=== PATIENT | female | born 1990 | race Caucasian/White ===

== ENCOUNTER 2020-02-04 11:05 | Outpatient (REF) | payer OTHER, SELFPAY ==
--- NOTE | 2020-02-04 11:11 | FL_ITS ---
EXAMINATION: XR BARIUM SWALLOW CLINICAL INFORMATION: Globus sensation. COMPARISON: None. TECHNIQUE: The patient was given thin and thick consistency barium, effervescent granules and a barium pill to swallow. The swallowing mechanism and esophagus were evaluated with the patient positioned variously. Reflux maneuvers were performed. FLUOROSCOPY TIME: 2.9 minutes IMAGES:38 TOTAL DOSE: 30.695 mGy TOTAL DAP: 9.099 Gycm2 FINDINGS: The swallowing mechanism was unremarkable. The esophagus showed a normal mucosal fold pattern, without mucosal thickening, ulceration, mass or stricture. The patient passed a barium pill with transient holdup at the gastroesophageal junction; however, this passed fairly readily. There was normal esophageal motility. There is no hiatus hernia. Gastroesophageal reflux is not seen despite reflux maneuvers. IMPRESSION: Unremarkable examination.
== END 2020-02-04 11:06 | disposition home or self-care (01) ==
LOC: HO.XRAY 11:05
PROVIDERS: PCP Nurse Practitioner Family; Visit Provider Physician Assistant
DX: R13.10 Dysphagia, unspecified (principal); R09.89 Other specified symptoms and signs involving the circulatory and respiratory systems
CPT/HCPCS: 74220

== ENCOUNTER 2020-03-27 08:10 | Outpatient (REF) | payer OTHER, SELFPAY ==
[2020-03-27 09:17] LABS: COVID-19 Test Negative (Negative)
== END 2020-03-27 08:11 | disposition home or self-care (01) ==
LOC: HO.EMPCOV 08:10
PROVIDERS: Visit Provider Internal Medicine
DX: Z20.828 Contact with and (suspected) exposure to other viral communicable diseases (principal)
CPT/HCPCS: 87635; C9803

== ENCOUNTER 2020-04-26 10:08 | Outpatient (REF) | payer OTHER, SELFPAY ==
[2020-04-26 10:30] LABS: COVID-19 Test Negative (Negative); IDNOW Serial# 55D5AD1C
== END 2020-04-26 10:09 | disposition home or self-care (01) ==
LOC: HO.EMPCOV 10:08
PROVIDERS: PCP Nurse Practitioner Family; Visit Provider Internal Medicine
DX: Z20.828 Contact with and (suspected) exposure to other viral communicable diseases (principal)
CPT/HCPCS: 87635; C9803

== ENCOUNTER 2020-06-06 07:39 | Outpatient (REF) | payer OTHER, SELFPAY ==
[2020-06-06 07:56] LABS: COVID-19 Test Negative (Negative)
== END 2020-06-06 07:40 | disposition home or self-care (01) ==
LOC: HO.EMPCOV 07:39
PROVIDERS: Visit Provider Internal Medicine
DX: Z20.822 Contact with and (suspected) exposure to COVID-19 (principal)
CPT/HCPCS: 36415; 87635; C9803

== ENCOUNTER 2020-06-08 07:34 | Outpatient (REF) | payer OTHER, SELFPAY ==
[2020-06-08 07:52] LABS: COVID-19 Test Negative (Negative); IDNOW Serial# 55D5AD1C
== END 2020-06-08 07:35 | disposition home or self-care (01) ==
LOC: HO.EMPCOV 07:34
PROVIDERS: Visit Provider Internal Medicine
DX: Z20.822 Contact with and (suspected) exposure to COVID-19 (principal)
CPT/HCPCS: 36415; 87635; C9803

== ENCOUNTER 2020-06-13 07:57 | Outpatient (REF) | payer OTHER, SELFPAY ==
[2020-06-13 08:21] LABS: COVID-19 Test Negative (Negative); IDNOW Serial# 55D5AD1C
== END 2020-06-13 07:58 | disposition home or self-care (01) ==
LOC: HO.EMPCOV 07:57
PROVIDERS: Visit Provider Internal Medicine
DX: Z20.822 Contact with and (suspected) exposure to COVID-19 (principal)
CPT/HCPCS: 36415; 87635; C9803

== ENCOUNTER 2021-01-06 22:33 | Emergency (ER) | payer OTHER, SELFPAY ==
[2021-01-06 23:09] VITALS: BP 136/92; PULSE 89; RESP 20; TEMP 35.9; O2SAT 100; BMI 23.8
--- NOTE | 2021-01-07 00:31 | ED_ITS ---
HPI - Dental/Oral General Chief complaint: Dental/Oral Stated complaint: Dental Pain Time Seen by Provider: 01/07/21 00:31 Source: patient Limitations: no limitations History of Present Illness HPI Narrative: 30-year-old female here today for dental pain. Patient was seen by her dentist and was given amoxicillin and was sent to oral surgeon for root canal. Patient reports that she does not have appointment with them told at 30. Patient is taking ibuprofen 600 mg without any effect. She does report that when she swishes her mouth with cold water it helps. Patient denies any gum swelling or bleeding. Patient denies any sinus pain or ear pain. No trouble swallowing. No sore throat, no fever MD Complaint: tooth pain Location: Tooth # (2, 30) Onset (ago): day(s) Duration: constant Severity: moderate Relieving factors: nothing Treatment prior to arrival: oral analgesic (Ibuprofen 600 mg) Related Data Previous Rx's Medication Instructions Recorded amoxicillin 875 mg-potassium 1 tab PO BID 7 Days #14 tab 01/07/21 clavulanate 125 mg tablet (Augmentin) oxycodone 5 mg tablet 5 mg PO Q4-6H PRN #5 tab 01/07/21 Allergies Allergy/AdvReac Type Severity Reaction Status Date / Time No Known Allergies Allergy Unverified 01/13/20 19:27 [No Known Allergies*] Review of Systems Review of Systems: Constitutional : No Weight loss, No Fever, No Chills, No Night Sweats, No Fatigue, No Malaise ENT/Mouth : No Hearing loss, No Ear Pain, No Nasal Congestion, No Sinus Pain, No Hoarseness, No sore throat, No Rhinorrhea, No Swallowing Difficulty, Tooth pain Eyes: No Eye Pain, No Swelling, No Redness, No Foreign Body, No Discharge, No Vision Changes Cardiovascular : No Chest Pain, No SOB, No Dyspnea on Exertion, No Orthopnea, No Edema, No Palpitations Respiratory : No Cough, No Sputum, No Wheezing, No Smoke Exposure, No Dyspnea Gastrointestinal : No Nausea, No Vomiting, No Diarrhea, No Constipation, No abdominal Pain, No Hematochezia, No Melena Genitourinary : no irregular bleeding, No Dysuria, No Urinary Frequency, No Hematuria, No Urinary Incontinence, No Urgency, No Flank Pain, No Urinary Flow Changes, No Hesitancy Musculoskeletal : No joint pain, No Myalgias, No Joint Swelling Skin : No Skin Lesions, No rash Neuro : No Weakness, No Numbness, No Paresthesias, No Loss of Consciousness, No Dizziness, No Headache Yes all other systems are reviewed and are negative PMFSH Social History Social History Advance Directives: No Physical Exam Vital Signs: Vital Signs: Last Vital Signs Temp 96.6 F L 01/06/21 23:09 Pulse 89 01/06/21 23:09 Resp 20 01/06/21 23:09 BP 136/92 H 01/06/21 23:09 Pulse Ox 100 01/06/21 23:09 Body Mass Index 23.8 Const: General: healthy appearing, no acute distress and well developed Nutritional Appearance: well nourished Orientation/consciousness: patient oriented x3 HENMT: Head: Yes normal to inspection, Yes normocephalic and Yes atraumatic Ears: hearing grossly normal bilaterally, external ears normal, TM's normal bilaterally and mastoids normal General nose exam: Normal external nose present Face and sinus: Yes normal facial exam Mouth: Normal oral and palatal mucosa present Teeth and gingiva: dentition normal Throat: Yes posterior oropharynx normal Neck: Neck: Yes normal visual inspection, Yes full ROM and Yes trachea midline Thyroid: Thyroid normal Resp: Auscultation: clear to auscultation bilaterally Cardio: Rate: regular rate Rhythm: regular rhythm GI: Inspection: Yes normal to inspection and No distended Palpation (GI): No hepatosplenomegaly present Auscultation: normal bowel sounds Skin: General skin exam: elasticity normal, turgor normal and dry skin Neuro: General: patient oriented x3 Course Course Course Narrative: 30-year-old female with dental pain. Number 2 and number 31. On exam there is no gum infection, no maxillary sinus pain, patient is waiting for root canal and does not have appointment still January 23. She was placed on amoxicillin and has been taking for last 3 days however it is not helping. Will start her on Augmentin twice a day for 7 days. Will give her dose of oxycodone and send him home on that. Patient was instructed to return if her symptoms will get worse or if she will experience any additional concerning symptoms Discharge Plan Discharge Clinical Impression: Toothache Patient Disposition: Home, Self-Care Instructions: Dental Abscess (ED), Toothache (ED) Additional Instructions: You were seen here today for your tooth pain. You were given different antibiotic and pain medication. Please follow-up with your dentist on Friday. Please call your oral surgeon to see if they can do the procedure sooner. You may return to our emergency department if her symptoms will get worse or if you experience any additional concerning symptoms. Prescriptions: New amoxicillin-pot clavulanate [Augmentin] 875-125 mg tablet 1 tab PO BID 7 Days Qty: 14 RF: 0 oxycodone 5 mg tablet 5 mg PO Q4-6H PRN (Reason: pain) Qty: 5 RF: 0 Referrals: Dania Bond, SATURATION EQUIPMENT OPERATOR [Primary Care Provider] - 2 days Stand Alone Forms: Work/School Release Interventions: ED Discharge Assessment Last Done: 01/07/21 01:01 Discharge Date/Time: 01/07/21 01:03
[2021-01-07] MEDS: Amoxicillin/Potassium Clav 875 MG TABLET PO (00:50)
[2021-01-07] MEDS: oxyCODONE HCl Immed Release 5 MG TABLET PO (00:50)
== END 2021-01-07 01:03 | disposition home or self-care (01) ==
PROVIDERS: Emergency Provider Student in an Organized Health Care Education/Training Program; PCP Nurse Practitioner Family
DX: K08.89 Other specified disorders of teeth and supporting structures (principal)
CPT/HCPCS: 99283

== ENCOUNTER 2021-05-16 07:42 | Outpatient (REF) | payer OTHER, SELFPAY ==
[2021-05-16 09:14] LABS: Thyroid Stimulating Hormone 1.59 uIU/mL (0.32-4.0)
== END 2021-05-16 07:43 | disposition home or self-care (01) ==
LOC: HO.LAB 07:42
PROVIDERS: PCP Nurse Practitioner Family; Visit Provider Nurse Practitioner Family
DX: K59.00 Constipation, unspecified (principal)
CPT/HCPCS: 36415; 84443

== ENCOUNTER 2021-06-01 23:32 | Emergency (ER) | payer OTHER, SELFPAY ==
[2021-06-01 23:40] VITALS: BP 100/64; PULSE 68; RESP 16; O2SAT 96; BMI 23.9
--- NOTE | 2021-06-02 00:08 | ED_ITS ---
HPI - Psych General Chief Complaint: Psychiatric Symptoms Stated Complaint: self harm Time Seen by Provider: 06/02/21 00:05 History of Present Illness HPI Narrative: patient is a 30-year-old female her sister recently . Patient under lot of stress. Was drinking alcohol. Has thoughts about wanting to hurt herself. Patient elected to cut her left wrist. History of previous cutting behavior before. Positive suicidal ideation. Boyfriend noted patient has cuts to her wrist. Contacted a friend subsequently patient was sent in for further evaluation. No fever no chills no coughing or congestion or upper respiratory symptoms no diaphoresis. Patient home. complaint: suicidal ideation Related Data Previous Rx's Medication Instructions Recorded amoxicillin 875 mg-potassium 1 tab PO BID 7 Days #14 tab 01/07/21 clavulanate 125 mg tablet (Augmentin) oxycodone 5 mg tablet 5 mg PO Q4-6H PRN #5 tab 01/07/21 Allergies Allergy/AdvReac Type Severity Reaction Status Date / Time No Known Allergies Allergy Unverified 01/13/20 19:27 [No Known Allergies*] Review of Systems Verdana 4l Review of Systems: Verdana 4d No cough no congestion or Verdana 4d upper respiratory symptoms no diaphoresis all system reviewed otherwise negative Verdana 4d Yes all other systems are reviewed and are negative [facility] Past Medical History Attestation statement: The following information was validated with the patient. 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 Oriented X3. No acute distress. Eyes: Pupils equal, round and reactive to light. ENT: Pharynx normal. Neck: Normal inspection. Neck supple. No lymph nodes noted. No crepitus CVS: Normal heart rate and rhythm. Pulses normal. Normal S1 and S2 Respiratory: No respiratory distress. Breath sounds normal. No Wheezing. No rales Abdomen: Soft and nontender. No rigidity. No distention. good BS x4 Skin: Skin warm and dry. Normal skin color. Normal skin turgor. multiple superficial cut ross were noted in the left wrist Extremities: No lower extremity edema. Neurovascular intact to all extremities. No Lacerations. No Rash Neuro: Oriented X 3. No motor deficit. No sensory deficit. Moving all extermities. No slurred speech MDM - Psych MDM Narrative Medical decision making narrative: will get crisis to evaluate patient. Discharge Plan Discharge Clinical Impression: Alcohol intoxication, Suicidal ideation Prescriptions: No Action amoxicillin-pot clavulanate [Augmentin] 875-125 mg tablet 1 tab PO BID 7 Days Qty: 14 0RF oxycodone 5 mg tablet 5 mg PO Q4-6H PRN (Reason: pain) Qty: 5 0RF Rx Instructions: Patient may request fewer tablets than prescribed
[2021-06-02 00:28] VITALS: BMI 23.9
[2021-06-02] MEDS: Acetaminophen 325 MG TABLET 650 MG PO ×2 (01:19→06:19)
[2021-06-02 01:35] LABS: UPreg QC Valid YES; Urine Pregnancy NEGATIVE (NEGATIVE)
[2021-06-02 01:39] LABS: Ethanol 195 mg/dL
--- NOTE | 2021-06-02 01:46 | PC.NURSE ---
I assumed care of Hawa upon her arrival to bed 6. She arrived via EMS, tearful, from home after her boyfriend called 911 in response to her cutting her left wrist intentionally because she is depressed, she states. 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 She hyas no complaints - no chest pain, no Sob, no nausea or vomiting, no LOUIS or lightheadedness. There is no bleeding to the left wrist where there are multiple small, superficial self inflicted markings from cutting. The pt is calm, cooperative, polite, makes eye contact with staff appropriately and has a full range of emotions while in the E.D. Labs were obtained from Hawa and she has been informed that in order to meet with Daniele she needs to have a BAL below a certain cutoff. Although she expressed dismay over this since it will likely mean a longer ER visit, she was cooperative. She has been moved from bed 6 to pod.
[2021-06-02 01:51] LABS: Amphetamine Screen Urine Not Detected (Not Detect); Barbiturates, Urine Not Detected (Not Detect); Benzodiazepines Screen Urine Not Detected (Not Detect); Cannabinoid Screen Urine Not Detected (Not Detect); Cocaine Screen Urine Not Detected (Not Detect); Fentanyl, urine Not Detected (Not Detect); Opiate Screen Urine Not Detected (Not Detect); Phencyclidine Screen Urine Not Detected (Not Detect)
[2021-06-02 02:08] LABS: COVID-19 Test Negative (Negative); IDNOW Serial# 9DD0AD1C
[2021-06-02] MEDS: LORazepam 1 MG TABLET 2 MG PO (06:35)
--- NOTE | 2021-06-02 07:01 | PC.NURSE ---
Patient slept through the night, patient was upset and tearful in the morning, care team notified, Ativan 2 mg PO administered with positive effect, no distress reported, will continue to monitor.
--- NOTE | 2021-06-02 07:40 | PC.NURSE ---
pt seen by carlos (care team) pt aware of plan of care.
[2021-06-02 08:01] VITALS: BP 115/70; PULSE 98; RESP 17; TEMP 37.1; O2SAT 99
--- NOTE | 2021-06-02 08:35 | PC.NURSE ---
superficial lac to pt's l inner lower forearm cleansed with n/s and pat dry.
--- NOTE | 2021-06-02 09:15 | MHC.CARE ---
Pt is a 30 y/o Georgian speaking female who is previously unknown to the CARE Team.? Yesterday, EMS and police were called after pt cut her wrist.? Pt lost her older sister to HERMAN on May 16 and has been grieving the loss since that time.? Pt was in the bathroom at home and had been consuming alcoholic beverage in a quantity that she normally does not ingest.? Her boyfriend checked on her and found that she had made a horizontal cut to her left wrist.? He saw the blood, grew immediately concerned and contacted her best friend, not knowing what to do.? Her best friend in turn called the police who responded with EMS and the pt was transported here via ambulance. Pt has been medically cleared and is being assessed by the CARE Team to determine appropriate treatment recommendations. Pt has no known hx of inpt hospitalizations, and is not on any medication for mental illness. No known dx of mental illness.? No known hx of substance use or suicide attempts.? Pt is alert and oriented x4 and is assessed in her room in the Behavioral Health Pod of the ED.? She is dressed in hospital attire, appears neat and well-groomed and her stated age.? She is engaged in the conversation, makes intermittent eye contact and appears embarrassed.? It is worth noting that pt is an employee of [employer].? Pt is help seeking, not knowing precisely what type of help she needs but did suggest she could benefit from a therapist or from the EAP.? Her speech is within normal limits.? She reports fair sleep and appetite.? Her mood is sad; her affect is congruent with her mood.? She is at times tearful at the mention of the loss of her sister.? She does not appear delusional or experiencing symptoms of psychosis.? She denies AVH, HI, , or self-harm urges.? She attributes her self-injury yesterday to excessive alcohol consumption.? She does report a remote hx of cutting with the last such incident occurring when she was 19 or 20, approximately 10 years ago.? Pt appears insightful regarding the incident that occurred yesterday and had suggested that speaking with family and loved ones regarding her grief may not be as effective as speaking with a therapist.? She denies any hx of SI stating that she had ?Never wanted to or kill myself.?? Pt?s judgement, memory, concentration, and impulse control appear good at this time. Pt admits to being off her baseline yesterday when she cut her wrist.? She attributes this to her excessive alcohol consumption.? 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 She engages with family and friends as well as her boyfriend who she cohabitates with. ?She has no psychiatric medication.? At baseline, pt goes to work regularly and goes about the activities of daily living with no difficulty.? Pt appears at this time to be at her baseline. Collateral report was taken from pt?s boyfriend.? Pt?s boyfriend Will discussed the details of the incident as outlined above.? He expressed that he felt pt could be safe at home and was welcome to return though he did say she needed some help of some sort. Plan is for pt to be discharged home.? CARE Team will contact the [facility] EAP program and ask that they contact pt. for an appointment.? A safety plan will be put in place and is attached to this note. ?This disposition is discussed with and agreed upon by ED provider Bob Wesley, Director of Behavioral Health Bob Ybarra, and pt?s nurse LALY Garsia.? ? Safety Plan: If you find yourself in crisis utilize these organizations for crisis support/evaluation ? For crisis support/ evaluation ? [facility] Crisis- [phone], [facility] Crisis- [phone], [address] [place] [address] Crisis- [phone], [place], come to [facility] ED ? Safety Plan Hawa will utilize coping skills when feeling anxious, depressed, or stressed and will challenge irrational thinking If Hawa is feeling unsafe/taking actions toward harming herself or others she will call crisis hotlines, or come to the ED If there are any questions regarding this safety plan, Hawa or any concerned parties can call the CARE Team at [phone], opt 1. Hawa is encouraged to share this plan with friends and therapist (Once secured).? A follow up phone call will be made to you by the CARE Team early to mid-week to check in with you and offer additional supports if needed. Steps for keeping you safe: ? List People and social settings that can provide distraction: ? ? Name:? Phone: ? Name:? Phone: ? Name:? Phone: ? How can you make your environment safe? ? 1.? 2.? 3.? CARE Team will contact the [facility] Employee Assistance Program to facilitate an appointment.
[2021-06-02] MEDS: LORazepam 1 MG TABLET PO (10:43)
--- NOTE | 2021-06-04 16:43 | MHC.CARE ---
CARE Team called Hawa, , to follow up and left a voicemail for pt to call back when available.
--- NOTE | 2021-06-06 17:35 | MHC.CARE ---
CARE Team speaks with pt as a follow up to her recent ED visit.? Pt reports that she is doing ?Ok? and is ?Trying?.? She recently dropped her boyfriend off at detox for drinking and has been experiencing stress surrounding that.? She reports not having slept last night due to being unable to get to sleep.? She reports being prescribed a medication for sleep but last night it made her anxious and she was unable to sleep.? She reports that she has an appointment with Mary Ann Michael from [facility] and appears optimistic about the meeting.? Pt was encouraged to reach out should she need anything else.
== END 2021-06-02 11:00 | disposition home or self-care (01) ==
PROVIDERS: Emergency Provider Emergency Medicine Emergency Medical Services
DX: F10.920 Alcohol use, unspecified with intoxication, uncomplicated (principal); Y90.6 Blood alcohol level of 120-199 mg/100 ml; R45.851 Suicidal ideations; Z20.822 Contact with and (suspected) exposure to COVID-19; Z72.89 Other problems related to lifestyle; Z63.4 Disappearance and death of family member
CPT/HCPCS: 36415; 80307; 81025; 82077; 87635; 99285

== ENCOUNTER 2021-06-05 23:52 | Emergency (ER) | payer OTHER, SELFPAY ==
--- NOTE | 2021-06-06 | ECG_ITS ---
Test Reason : anxiety Blood Pressure : / mmHG Vent. Rate : 077 BPM Atrial Rate : 091 BPM P-R Int : 136 ms QRS Dur : 096 ms QT Int : 396 ms P-R-T Axes : 045 083 042 degrees QTc Int : 448 ms Sinus rhythm with marked sinus arrhythmia Otherwise normal ECG No previous ECGs available Referred By: Generic ED Physician Electronically Signed By:Regulo Parkinson
[2021-06-06 00:02] VITALS: BP 150/100; PULSE 90; RESP 18; TEMP 36.4; O2SAT 100; BMI 23.9
[2021-06-06 01:39] LABS: MANUAL DIFF FLAG NO
[2021-06-06 01:42] LABS: Basophils Percent Auto 0.4 % (0-2); Eosinophils Absolute Auto 0.5 X10*3/uL (0.0-0.4); Eosinophils Percent Auto 6.9 % (0-4); Hematocrit 35.3 % (37.0-47.0); Hemoglobin 12.2 g/dl (12.0-16.0); Imm Gran Abs Auto 0.02 X10*3/uL (0.00-0.03); Imm Gran Pct Auto 0.3 % (0.0-0.4); Lymphocytes Absolute Auto 2.7 X10*3/uL (1.2-4.9); Lymphocytes Percent Auto 35.4 % (20-40); Mean Corpuscular HGB Conc 34.6 g/dl (31.0-35.0); Mean Corpuscular Hemoglobin 33.2 pg (27.0-33.0); Mean Corpuscular Volume 95.9 fL (80.0-98.0); Mean Platelet Volume 9.2 fL (9.4-12.3); Monocytes Absolute Auto 0.5 X10*3/uL (0.1-1.2); Monocytes Percent Auto 6.8 % (2-11); Neutrophils Absolute Auto 3.8 x10*3/uL (2.0-8.3); Neutrophils Percent Auto 50.2 % (45-73); Platelet Count 246 X10*3/uL (160-400); Red Blood Count 3.68 X10*6/uL (4.20-5.50); White Blood Count 7.5 X10*3/uL (4.8-10.8)
--- NOTE | 2021-06-06 01:48 | PC.NURSE ---
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 CIWA scored performed, score 10 related to nausea/vomiting and anxiety. Pt also reports self harm cutting herself seen here at [facility] on Friday, pt denies self harm tendencies today. CARE team Tonia spoken with and stated they have been trying to follow up with her today over the phone without any answer. Pt calm and coopertaive in waiting room at this time.
[2021-06-06 01:58] LABS: Ethanol < 10 mg/dL
[2021-06-06 01:59] LABS: Anion Gap 14 (12-20); Blood Urea Nitrogen 12 mg/dL (9-16); Calcium 10.4 mg/dL (8.4-10.2); Carbon Dioxide 22 mmol/L (22-29); Chloride 107 mmol/L (96-108); Creatinine Clr Calc Pharmacy 101.8; Estimated Glomerular Filt Rate > 60; Glucose Random 96 mg/dL (60-115); Potassium 3.6 mmol/L (3.3-5.1); Sodium 139 mmol/L (135-145)
[2021-06-06 03:33] VITALS: BP 141/89; PULSE 89; RESP 16; TEMP 36.8; O2SAT 99
--- NOTE | 2021-06-06 03:35 | PC.NURSE ---
pt to room with c/o my heart is racing after my sister approx 1 month ago. pt arrives alert, respirations easy, n/l. skin w/d. pt chg into gown and awaiting MD tyrone kelly.
--- NOTE | 2021-06-06 05:10 | ED_ITS ---
HPI - General Adult General Chief complaint: General Medical Stated complaint: anxiety, chest pain Time Seen by Provider: 06/06/21 05:10 Source: patient Mode of arrival: ambulatory History of Present Illness HPI narrative: 30-year-old female without significant past medical history presents with feeling extreme anxiety associated with small sharp chest pains and provides the additional history that she recently lost her sister on May 16 of this year and began drinking afterwards but has stopped drinking as of Friday. She states that yesterday she dropped her boyfriend off at rehab and thought that she would be okay and then developed the symptoms that prompted her to seek out medical attention. She states she had some concerns that she may be withdrawing from alcohol. And at this time she endorses that she is feeling much better and denies any associated symptoms such as headache, paresthesias, AVH. Related Data Previous Rx's Medication Instructions Recorded amoxicillin 875 mg-potassium 1 tab PO BID 7 Days #14 tab 01/07/21 clavulanate 125 mg tablet (Augmentin) oxycodone 5 mg tablet 5 mg PO Q4-6H PRN #5 tab 01/07/21 Allergies Allergy/AdvReac Type Severity Reaction Status Date / Time No Known Allergies Allergy Verified 06/06/21 00:01 [No Known Allergies*] Review of Systems Review of Systems: Pertinent positives and negatives as stated in HPI 10 point review of systems is otherwise negative. PMFSH Past Medical History Source: nursing notes reviewed Social History Social History Alcohol intake: current Patient Tobacco Use Status: Never used Tobacco Advance Directives: No Advance Directives Information Provided: Yes Patient : No Physical Exam Vital Signs: Vital Signs: Last Vital Signs Temp 98.2 F 06/06/21 03:33 Pulse 89 06/06/21 03:33 Resp 16 06/06/21 03:33 BP 141/89 H 06/06/21 03:33 Pulse Ox 99 06/06/21 03:33 BMI result Body Mass Index 23.9 VITAL SIGNS: Reviewed. GENERAL: Well developed, well nourished, in no acute distress. HEAD: Normocephalic/atraumatic EYES: PERRLA, EOMI OROPHARYNX: no oral lesions noted, posterior pharynx clear LUNGS: Normal breath sounds. No adventitious sounds or accessory muscle use. SpO2<99> CARDIOVASCULAR: Regular rate and rhythm without noted murmurs ABDOMEN: Soft, non-tender, non-distended with bowel sounds. SKIN: Inspection of the skin reveals no rashes NEUROLOGIC: Alert and oriented x 4. Strength and sensation to light touch were grossly intact x 4, no tremor PSYCH: Normal affect, Course Course Course Narrative: 30-year-old female with history and clinical presentation consistent with grieving process and associated anxiety with current situation. No evidence to suggest acute alcohol withdrawal, however patient was counseled on continuing to monitor herself for such symptoms and reassured that as she is feeling better this is felt to be less likely. She was reassured and states that she has follow-up with a therapist and feels that she is well supported. She was encouraged to return to the emergency room should she ever feel the need. Medical Decision Making Lab Data Result diagrams: 06/06/21 01:34 06/06/21 01:34 Labs: Lab Results 06/06/21 06/06/21 06/06/21 Range/Units 01:34 01:34 01:34 WBC 7.5 (4.8-10.8) X10*3/uL RBC 3.68 L (4.20-5.50) X10*6/uL Hgb 12.2 (12.0-16.0) g/dl Hct 35.3 L (37.0-47.0) % MCV 95.9 (80.0-98.0) fL MCH 33.2 H (27.0-33.0) pg MCHC 34.6 (31.0-35.0) g/dl RDW 12.0 (11.0-16.0) % Plt Count 246 (160-400) X10*3/uL MPV 9.2 L (9.4-12.3) fL Immature Gran % (Auto) 0.3 (0.0-0.4) % Neut % (Auto) 50.2 (45-73) % Lymph % (Auto) 35.4 (20-40) % [place] % (Auto) 6.8 (2-11) % Eos % (Auto) 6.9 H (0-4) % Baso % (Auto) 0.4 (0-2) % Lymph # (Auto) 2.7 (1.2-4.9) X10*3/uL [place] # (Auto) 0.5 (0.1-1.2) X10*3/uL Eos # (Auto) 0.5 H (0.0-0.4) X10*3/uL Baso # (Auto) 0.0 (0.0-0.2) X10*3/uL Abs Immat Gran (auto) 0.02 (0.00-0.03) X10*3/uL Absolute Neuts (auto) 3.8 (2.0-8.3) x10*3/uL Absolute Nucleated RBC 0.000 (0.0-0.012) X10*3/uL Nucleated RBC % (auto) 0.0 (0.0-0.2) /100WBC Sodium 139 (135-145) mmol/L Potassium 3.6 (3.3-5.1) mmol/L Chloride 107 (96-108) mmol/L Carbon Dioxide 22 (22-29) mmol/L Anion Gap 14 (12-20) BUN 12 (9-16) mg/dL Creatinine 0.68 (0.5-1.4) mg/dL Estim Creat Clear Calc 101.8 Estimated GFR > 60 Random Glucose 96 (60-115) mg/dL Calcium 10.4 H (8.4-10.2) mg/dL Ethyl Alcohol < 10 mg/dL Discharge Plan Discharge Clinical Impression: Anxiety, Grieving, Alcohol use Patient Disposition: Home, Self-Care Instructions: Anxiety (ED), Grief and Loss (ED) Additional Instructions: 1. Resume all home medications as prescribed. 2. Continue follow-up as scheduled with Mary Ann Return to the ER for any worsening symptoms or concerns. Prescriptions: No Action amoxicillin-pot clavulanate [Augmentin] 875-125 mg tablet 1 tab PO BID 7 Days Qty: 14 0RF oxycodone 5 mg tablet 5 mg PO Q4-6H PRN (Reason: pain) Qty: 5 0RF Rx Instructions: Patient may request fewer tablets than prescribed
== END 2021-06-06 06:15 | disposition home or self-care (01) ==
PROVIDERS: Emergency Provider Student in an Organized Health Care Education/Training Program
DX: F41.9 Anxiety disorder, unspecified (principal); F43.21 Adjustment disorder with depressed mood; F10.99 Alcohol use, unspecified with unspecified alcohol-induced disorder; Y90.0 Blood alcohol level of less than 20 mg/100 ml; Z72.89 Other problems related to lifestyle; Z63.4 Disappearance and death of family member
CPT/HCPCS: 36415; 80048; 82077; 85025; 93005; 99283; 99284

== ENCOUNTER → 2022-06-12 15:03 | Outpatient (BNVA) | payer OTHER, SELFPAY | PROVIDERS: PCP Nurse Practitioner Family; Visit Provider Nurse Practitioner Family | DX: Z13.89 Encounter for screening for other disorder (principal) ==

== ENCOUNTER → 2022-10-11 08:00 | Outpatient (REF) | payer OTHER, SELFPAY ==
--- NOTE | 2022-10-11 08:06 | CA_ITS ---
Acquisition Time: 2022-10-11 08:14:56 Total Exercise Time: 00:10:01 Test Indications: CP Medications: SEE H Protocol: SUKHJINDER Max HR: 179 BPM 93% of Pred: 191 BPM Max BP: 146/070 mmHG Max Work Load: 11.6 METS Exercise stress test exericse 10 min 1 sec of Sukhjinder protocol achieving 93% MPHR, without anginal symptoms, without arrhythmias, with normotensive response to exercise, without EKG changes. Test reviewed with Dr. Saavedra. Referred By: Harris Yoder Overread By: STAR LOPEZ
== END ==
LOC: HO.CARD 08:00
PROVIDERS: PCP Internal Medicine; Visit Provider Internal Medicine
DX: R07.9 Chest pain, unspecified (principal)
CPT/HCPCS: 93017

== ENCOUNTER 2022-12-23 19:58 | Emergency (ER) | payer OTHER, SELFPAY ==
--- NOTE | 2022-12-23 | ECG_ITS ---
Test Reason : ABNORMAL EKG Blood Pressure : / mmHG Vent. Rate : 080 BPM Atrial Rate : 080 BPM P-R Int : 138 ms QRS Dur : 100 ms QT Int : 394 ms P-R-T Axes : 079 090 056 degrees QTc Int : 454 ms Normal sinus rhythm with sinus arrhythmia Rightward axis Incomplete right bundle branch block Borderline ECG When compared with ECG of 06-JUN-2021 00:05, No significant change was found Referred By: Generic ED Physician Electronically Signed By:MOY COOPER
--- NOTE | 2022-12-23 20:10 | ED_ITS ---
HPI - General Adult General Chief complaint: Chest Pain Stated complaint: abnormal EKG, UC referral Time Seen by Provider: 12/23/22 21:03 Source: patient Mode of arrival: ambulatory Limitations: no limitations History of Present Illness HPI narrative: Patient comes in the emergency room complaining of 2 months of chest pain. Patient states that she went to urgent care 1st, an EKG was done which showed a right bundle branch block in patient was sent to the emergency room for further evaluation. Patient states that she is known to have anxiety. Patient states when she takes Ativan the chest pain resolves. At this time, patient is asymptomatic. Patient denies any shortness of breath, and she is extremely anxious. Patient denies any near-syncope or syncope episodes. No nausea vomiting diarrhea, no URI symptoms. Patient states that she takes Wellbutrin and recently she had Zoloft added 18 days ago, patient states that her anxiety symptoms have gotten worse since she started any medication Related Data Home Medications Medication Instructions Recorded Confirmed bupropion HCl 300 mg 24 hr tablet, 300 mg PO QAM 06/12/22 06/12/22 extended release (Wellbutrin XL) buspirone 5 mg tablet 30 mg PO BID 06/12/22 06/12/22 methylphenidate HCl 18 mg 18 mg PO DAILY 06/12/22 06/12/22 tablet,extended release 24 hr (Concerta) Previous Rx's Medication Instructions Recorded zolpidem 5 mg tablet 10 mg PO BEDTIME PRN sleep 7 days 06/12/22 #14 tabs Allergies Allergy/AdvReac Type Severity Reaction Status Date / Time No Known Allergies Allergy Verified 06/12/22 15:22 [No Known Allergies*] Review of Systems Review of Systems: Constitutional : No Weight loss, No Fever, No Chills, No Night Sweats, No Fatigue, No Malaise ENT/Mouth : No Hearing loss, No Ear Pain, No Nasal Congestion, No Sinus Pain, No Hoarseness, No sore throat, No Rhinorrhea, No Swallowing Difficulty Eyes: No Eye Pain, No Swelling, No Redness, No Foreign Body, No Discharge, No Vision Changes Cardiovascular : Complaining of chest pain related to anxiety for the last 2 months. No SOB, No Dyspnea on Exertion, No Orthopnea, No Edema, No Palpitations Respiratory : No Cough, No Sputum, No Wheezing, No Smoke Exposure, No Dyspnea Gastrointestinal : No Nausea, No Vomiting, No Diarrhea, No Constipation, No abdominal Pain, No Hematochezia, No Melena Genitourinary : no irregular bleeding, No Dysuria, No Urinary Frequency, No Hematuria, No Urinary Incontinence, No Urgency, No Flank Pain, No Urinary Flow Changes, No Hesitancy Musculoskeletal : No joint pain, No Myalgias, No Joint Swelling Skin : No Skin Lesions, No rash Neuro : No Weakness, No Numbness, No Paresthesias, No Loss of Consciousness, No Dizziness, No Headache Psych : No Anxiety/Panic, No Depression, No SI/HI/AH/VH, No Social Issues, Heme/Lymph: No Bruising, No Bleeding,No Lymphadenopathy Endocrine : No Polyuria, No Polydipsia, No Temperature Intolerance [facility] Past Medical History Medical History Anxiety Family History Family History Father Pancreatic abnormality Hypertension Mother No problems noted. Social History Social History Alcohol intake: current Patient Tobacco Use Status: Never used Tobacco Advance Directives: No Advance Directives Information Provided: Yes Patient : No Physical Exam ED Vital Signs: Vital Signs - 24 hr 12/23/22 20:31 12/23/22 21:04 Temperature 97.6 F Pulse Rate 84 79 Respiratory Rate 18 18 Blood Pressure 145/100 H 136/91 H Pulse Oximetry 100 100 Oxygen Delivery Method Room Air Room Air BMI result Body Mass Index 23.9 Const Other: Appearance: Alert. Oriented X3. No acute distress. Eyes: Pupils equal, round and reactive to light. ENT: Pharynx normal. Neck: Normal inspection. Neck supple. No lymph nodes noted. No crepitus CVS: Normal heart rate and rhythm. Pulses normal. Normal S1 and S2 Respiratory: No respiratory distress. Breath sounds normal. No Wheezing. No rales Abdomen: Soft and nontender. No rigidity. No distention. Skin: Skin warm and dry. Normal skin color. Normal skin turgor. Extremities: No lower extremity edema. No Lacerations. No Rash Neuro: Oriented X 3. No motor deficit. No sensory deficit. Moving all extremities. No slurred speech. CN 2 through 12 grossly intact Psych: calm, cooperative, normal affect Course Course Course Narrative: This is an RME: Additional HPI, ROS, PE not included below will be deferred to primary provider. Patient is a 32 year old female presenting from urgent care after an abnormal EKG. Patient states she was told she has a right bundle branch block. Patient admits she has been having some chest pain and heaviness going on for months but she attributed it to her anxiety. Plan: labs, EKG Medical Decision Making Medical Decision Making [facility] Narrative: -my interpretation of EKG: Normal sinus rhythm, heart rate 80, no ST segment depression or elevation, no T-wave inversion, QTC 454 -my interpretation of labs, normal hematology and chemistry, negative troponin. -normal vitals, blood pressure 136/91, heart rate 79. Oxygen saturation 100% on room air. -wells criteria score for pulmonary embolism is 0 Differential Diagnosis Differential Diagnoses: The differential diagnosis associated with the presentation includes (Anxiety, costochondritis, ACS) Admission/Observation Consideration of admission/observation: Escalation of care including admission/observation considered (Patient was transferred from Urgent Care to the emergency room for further evaluation of chest pain, patient considered) Lab Data [facility] Lab Attestation statement: I reviewed the patient's lab results. 12/23/22 20:14 12/23/22 20:14 Labs: Lab Results 12/23/22 12/23/22 12/23/22 Range/Units 20:14 20:14 20:14 WBC 7.8 (4.8-10.8) X10*3/uL RBC 4.29 (4.20-5.50) X10*6/uL Hgb 13.5 (12.0-16.0) g/dl Hct 38.6 (37.0-47.0) % MCV 90.0 (80.0-98.0) fL MCH 31.5 (27.0-33.0) pg MCHC 35.0 (31.0-35.0) g/dl RDW 12.0 (11.0-16.0) % Plt Count 235 (160-400) X10*3/uL MPV 9.1 L (9.4-12.3) fL Immature Gran % (Auto) 0.3 (0.0-0.4) % Neut % (Auto) 45.2 (45-73) % Lymph % (Auto) 44.6 H (20-40) % Hardee % (Auto) 6.0 (2-11) % Eos % (Auto) 3.4 (0-4) % Baso % (Auto) 0.5 (0-2) % Lymph # (Auto) 3.5 (1.2-4.9) X10*3/uL Hardee # (Auto) 0.5 (0.1-1.2) X10*3/uL Eos # (Auto) 0.3 (0.0-0.4) X10*3/uL Baso # (Auto) 0.0 (0.0-0.2) X10*3/uL Abs Immat Gran (auto) 0.02 (0.00-0.03) X10*3/uL Absolute Neuts (auto) 3.5 (2.0-8.3) x10*3/uL Absolute Nucleated RBC 0.000 (0.0-0.012) X10*3/uL Nucleated RBC % (auto) 0.0 (0.0-0.2) /100WBC Sodium 140 (135-145) mmol/L Potassium 4.2 (3.3-5.1) mmol/L Chloride 104 (96-108) mmol/L Carbon Dioxide 26 (22-29) mmol/L Anion Gap 14 (12-20) BUN 8 L (9-16) mg/dL Creatinine 0.73 (0.5-1.4) mg/dL Estim Creat Clear Calc 93.2 Estimated GFR > 60 Random Glucose 84 (60-115) mg/dL Calcium 9.6 D (8.4-10.2) mg/dL Magnesium 2.0 (1.6-2.6) mg/dL Total Bilirubin 0.4 (0.0-1.0) mg/dL AST 19 (5-31) U/L ALT 24 (0-31) U/L Alkaline Phosphatase 34 L (39-117) U/L Troponin I High Sens < 2.7 (<3.5-17.0) ng/L Total Protein 7.7 (6.5-8.0) g/dL Albumin 4.5 (3.5-5.0) g/dL Independent Historian Clinical information obtained from an independent historian. History obtained from or confirmed by: Other (Significant other) External Record Review External record reviewed: Outpatient record In September of 2022, patient had a stress test done, it was normal Critical Care Time Critical Care Time Critical Care Time: Yes Total Critical Care Time: 30 Attestation: I have personally provided critical care time. Time includes review of lab data, radiology results, discussion with consultants, and monitoring for potential decompensation. Intervention performed as documented. Discharge Plan Discharge Clinical Impression: Atypical chest pain Patient Disposition: Home, Self-Care Instructions: Chest Pain (ED), Chest Wall Pain (ED), Anxiety (ED) Additional Instructions: Please follow-up with your primary care physician tomorrow. If you have any worsening or new symptoms, please return to the emergency room or call 911 Prescriptions: No Action bupropion HCl [Wellbutrin XL] 300 mg tablet extended release 24 hr 300 mg PO QAM buspirone 5 mg tablet 30 mg PO BID methylphenidate HCl [Concerta] 18 mg tablet extended release 24hr 18 mg PO DAILY zolpidem 5 mg tablet 10 mg PO BEDTIME PRN (Reason: sleep) 7 Days Qty: 14 0RF
[2022-12-23 20:23] VITALS: BMI 23.9
[2022-12-23 20:23] LABS: MANUAL DIFF FLAG NO
[2022-12-23 20:27] LABS: Basophils Percent Auto 0.5 % (0-2); Eosinophils Absolute Auto 0.3 X10*3/uL (0.0-0.4); Eosinophils Percent Auto 3.4 % (0-4); Hematocrit 38.6 % (37.0-47.0); Hemoglobin 13.5 g/dl (12.0-16.0); Imm Gran Abs Auto 0.02 X10*3/uL (0.00-0.03); Imm Gran Pct Auto 0.3 % (0.0-0.4); Lymphocytes Absolute Auto 3.5 X10*3/uL (1.2-4.9); Lymphocytes Percent Auto 44.6 % (20-40); Mean Corpuscular Hemoglobin 31.5 pg (27.0-33.0); Mean Platelet Volume 9.1 fL (9.4-12.3); Monocytes Absolute Auto 0.5 X10*3/uL (0.1-1.2); Neutrophils Absolute Auto 3.5 x10*3/uL (2.0-8.3); Neutrophils Percent Auto 45.2 % (45-73); Platelet Count 235 X10*3/uL (160-400); Red Blood Count 4.29 X10*6/uL (4.20-5.50); White Blood Count 7.8 X10*3/uL (4.8-10.8)
[2022-12-23 20:31] VITALS: BP 145/100; PULSE 84; RESP 18; TEMP 36.4; O2SAT 100
[2022-12-23 20:38] LABS: Alanine Aminotransferase 24 U/L (0-31); Albumin Level 4.5 g/dL (3.5-5.0); Alkaline Phosphatase 34 U/L (39-117); Anion Gap 14 (12-20); Aspartate Amino Transferase 19 U/L (5-31); Bilirubin Total 0.4 mg/dL (0.0-1.0); Blood Urea Nitrogen 8 mg/dL (9-16); Calcium 9.6 mg/dL (8.4-10.2); Carbon Dioxide 26 mmol/L (22-29); Chloride 104 mmol/L (96-108); Creatinine Clr Calc Pharmacy 93.2; Estimated Glomerular Filt Rate > 60; Glucose Random 84 mg/dL (60-115); Potassium 4.2 mmol/L (3.3-5.1); Sodium 140 mmol/L (135-145); Total Protein 7.7 g/dL (6.5-8.0)
[2022-12-23 20:53] LABS: Troponin-I High Sensitivity < 2.7 ng/L (<3.5-17.0)
[2022-12-23 21:04] VITALS: BP 136/91; PULSE 79; RESP 18; O2SAT 100
== END 2022-12-23 21:45 | disposition home or self-care (01) ==
PROVIDERS: Physician Assistant; Emergency Provider Emergency Medicine
DX: R07.89 Other chest pain (principal); I45.10 Unspecified right bundle-branch block; Z79.899 Other long term (current) drug therapy
CPT/HCPCS: 36415; 80053; 83735; 84484; 85025; 93005; 99284

== ENCOUNTER → 2022-12-27 07:38 | Outpatient (REF) | payer OTHER, SELFPAY ==
--- NOTE | 2022-12-27 07:41 | HM_ITS ---
Conclusion: 1. Patient was monitored for total period of 6 days and 20 hours 2. Baseline was normal sinus with average heart of 86 beats per minute 3. No significant pauses noted 4. Very rare ectopy noted 5. Patient reported 8 events with fluttering in the chest or dizziness or anxiety or chest pain correlating with mostly sinus tachycardia MTDD
== END ==
LOC: HO.CARD 07:38
PROVIDERS: PCP Nurse Practitioner Family; Visit Provider Internal Medicine Cardiovascular Disease
DX: R00.2 Palpitations (principal)
CPT/HCPCS: 93242

== ENCOUNTER → 2022-12-27 07:41 | Outpatient (BNV) | payer OTHER, SELFPAY | PROVIDERS: PCP Nurse Practitioner Family; Visit Provider Internal Medicine Cardiovascular Disease | DX: I48.92 Unspecified atrial flutter (principal) | CPT/HCPCS: 93244 ==

== ENCOUNTER → 2023-01-01 13:56 | Outpatient (REF) | payer OTHER, SELFPAY ==
--- NOTE | 2023-01-01 14:00 | CA_ITS ---
Transthoracic Echocardiogram Patient (Last, First, Middle): Hawa Reyes A Gender: Female Date of : 1990 Age: 32 Procedure Date: 01/01/2023 Procedure Type: Transthoracic Echocardiogram Location: OP Height: 160.02 cm Weight: 56.7 kg BSA: 1.58 m2 Heart Rate: 77 bpm BP: 110 / 74 mmHg Chair Car Attendant: SB Referring MD: Regulo Parkinson MD Fueler: Eduardo Saavedra MD Symptoms: R00.2 - Palpitations Study Quality: TDS/Narrow rib spaces/Fair but adequate ECG Rhythm: Sinus Conclusions: - Normal study Findings Left Ventricle Normal left ventricular size, thickness, and systolic function. The visually estimated ejection fraction is between 60-65%. Spectral Doppler is indicative of a normal filling pattern. Right Ventricle Normal right ventricular cavity size and systolic function. Atria Both atria are normal in size. There is no evidence of interatrial shunt. Aortic Valve Normal aortic valve structure and function. There is no aortic valve stenosis. There is no aortic valve regurgitation. Mitral Valve Normal mitral valve structure and function. There is trace mitral valve regurgitation. There is no mitral valve stenosis. Pulmonic Valve The pulmonic valve is likely normal. Tricuspid Valve Normal tricuspid valve structure. Tricuspid regurgitation envelope is inadequate for calculation of right ventricular systolic pressure. Normal right atrial pressure. Great Vessels All visible segments of the aorta are normal in size. The pulmonary artery was not well visualized. Venous The inferior vena cava is normal in size and collapses greater than 50% with inspiration. Pericardium/Pleural There is no evidence of pericardial effusion. Prior Study Comparison No prior study available for comparison. Measurements 2D Linear Measurements IVSd: 0.69 0.6-0.9/0.6-1.0 cm LVIDd: 3.84 3.9-5.3/4.2-5.9 cm LVIDd Index: 2.43 2.4-3.2/2.2-3.1 cm/m2 LVIDs: 2.64 2.0-3.6 cm LVPWd: 0.62 0.7-1.1 cm LA Diam: 2.80 2.7-3.8/3.0-4.0 cm LAIDs Index: 1.77 1.5-2.3 cm/m2 LV Mass: 83.33 67-162/88-224 g LV Mass Index: 52.74 43-95/49-115 g/m2 LVOT Diam: 2.00 3.0+(-)1.3 cm Mitral Valve MV Pk E: 0.98 MV PK A: 0.36 MV Decel Time: 155.00 E/A: 2.70 E'Lateral: 14.40 E'Medial: 14.60 E/E' Med: 6.70 E/E' Lat: 6.80 PHT: 46.00 MVA PHT: 4.78 Decel [place]: 6.31 Aortic Valve AoV Pk Srinivas: 1.02 AoV Pk Grad: 4.00 SANDRA: 3.04 LVOT LVOT Pk Srinivas: 0.99 LVOT Mn Srinivas: 0.67 LVOT VTI: 0.21 LVOT Pk Grad: 4.00 LVOT Mn Grad: 2.00 LVOT Diam: 2.00 LVOT Area: 3.14 Diastolic Function MV Pk E: 0.98 MV Pk A: 0.36 E/A: 2.70 E'Medial: 14.60 E/E' Med: 6.70 E' Laterial: 14.40 E/E' Lat: 6.80 Right Ventricle TAPSE (mm): 22.60 TVS' Srinivas: 13.60 Tricuspid Valve RA Press: 3.00 Great Vessels Aorta Sinus of Valsalva: 2.60 2.0-3.5 cm Ao Asc: 2.50 2.1-3.4 cm Pulmonary Veins Pulm Vein S/D 0.90 Pulmonary Valve PV Pk Srinivas: 1.02 Peak PV Grad: 4.00 Updated in Other Vendor System with Status of Final Eduardo Saavedra MD electronically signed on 01/02/2023 1:29:22 PM with status of Final
== END ==
LOC: HO.CARD 13:56
PROVIDERS: PCP Nurse Practitioner Family; Visit Provider Internal Medicine Cardiovascular Disease
DX: R07.9 Chest pain, unspecified (principal); R00.2 Palpitations
CPT/HCPCS: 93306

== ENCOUNTER → 2023-01-01 14:00 | Outpatient (BNV) | payer OTHER, SELFPAY | PROVIDERS: PCP Nurse Practitioner Family; Visit Provider Internal Medicine Cardiovascular Disease | DX: R07.9 Chest pain, unspecified (principal); I45.10 Unspecified right bundle-branch block | CPT/HCPCS: 93306 ==

== ENCOUNTER 2023-07-04 08:20 | Outpatient (REF) | payer OTHER, SELFPAY ==
--- NOTE | ~2023-07-04 | XR_ITS ---
EXAMINATION: XR SINUSES CLINICAL INFORMATION: Sinusitis, patient unable to remove earrings. COMPARISON: None available. TECHNIQUE: 4 views of the sinuses. Patient unable to remove earrings per technologist's note. FINDINGS: No gross air-fluid levels identified in the maxillary sinuses. Frontal sinuses are grossly patent. No gross air-fluid level in the sphenoid sinus. Evaluation limited due to overlying bone and soft tissue structures. CT scan of the paranasal sinuses is strongly recommended if there is clinical concern for sinus pathology. XR/XR sinus <3V IMPRESSION: No gross air-fluid levels identified in the maxillary sinuses. CT scan of the paranasal sinuses is strongly recommended if there is clinical concern for sinus pathology as CT scan is much more sensitive.
== END 2023-07-04 08:21 | disposition home or self-care (01) ==
LOC: HO.XRAY 08:20
PROVIDERS: PCP Physician Assistant; Visit Provider Otolaryngology
DX: J32.9 Chronic sinusitis, unspecified (principal)
CPT/HCPCS: 70210

== ENCOUNTER 2023-07-28 | Outpatient (REF) | payer OTHER, SELFPAY ==
[2023-07-28 13:41] LABS: MANUAL DIFF FLAG NO
[2023-07-28 15:06] LABS: Basophils Percent Auto 0.7 % (0-2); Eosinophils Absolute Auto 0.4 X10*3/uL (0.0-0.4); Eosinophils Percent Auto 7.1 % (0-4); Hematocrit 38.1 % (37.0-47.0); Hemoglobin 13.4 g/dl (12.0-16.0); Imm Gran Abs Auto 0.01 X10*3/uL (0.00-0.03); Imm Gran Pct Auto 0.2 % (0.0-0.4); Lymphocytes Absolute Auto 2.6 X10*3/uL (1.2-4.9); Lymphocytes Percent Auto 45.5 % (20-40); Mean Corpuscular HGB Conc 35.2 g/dl (31.0-35.0); Mean Corpuscular Hemoglobin 31.2 pg (27.0-33.0); Mean Corpuscular Volume 88.6 fL (80.0-98.0); Mean Platelet Volume 9.2 fL (9.4-12.3); Monocytes Absolute Auto 0.4 X10*3/uL (0.1-1.2); Monocytes Percent Auto 7.7 % (2-11); Neutrophils Absolute Auto 2.2 x10*3/uL (2.0-8.3); Neutrophils Percent Auto 38.8 % (45-73); Platelet Count 223 X10*3/uL (160-400); Red Cell Distribution Width 12.3 % (11.0-16.0); White Blood Count 5.7 X10*3/uL (4.8-10.8)
[2023-07-28 15:36] LABS: Anion Gap 11 (12-20); Blood Urea Nitrogen 6 mg/dL (9-16); Calcium 9.6 mg/dL (8.4-10.2); Carbon Dioxide 27 mmol/L (22-29); Chloride 105 mmol/L (96-108); Estimated Glomerular Filt Rate > 60; Glucose Random 81 mg/dL (60-115); Potassium 3.8 mmol/L (3.3-5.1); Sodium 139 mmol/L (135-145)
[2023-07-28 15:53] LABS: Thyroid Stimulating Hormone 1.15 uIU/mL (0.32-4.0)
== END 2023-07-28 00:01 | disposition home or self-care (01) ==
LOC: HO.LAB
PROVIDERS: Visit Provider Nurse Practitioner Family
DX: R42 Dizziness and giddiness (principal)
CPT/HCPCS: 36415; 80048; 84443; 85025

== ENCOUNTER 2024-01-20 13:46 | Outpatient (REF) | payer OTHER, SELFPAY ==
[2024-01-21 21:07] LABS: Follicle Stimulating Hormone 5.8 mIU/mL; Prolactin 8.3 ng/mL
[2024-01-24 16:18] LABS: Testosterone, Total 48 ng/dL (2-45)
[2024-01-29 04:08] LABS: Estradiol Ultra Sensitive 51 pg/mL
== END 2024-01-20 13:47 | disposition home or self-care (01) ==
LOC: HO.LAB 13:46
PROVIDERS: Visit Provider Obstetrics & Gynecology Gynecology
DX: N91.2 Amenorrhea, unspecified (principal)
CPT/HCPCS: 36415; 82670; 83001; 84146; 84403; 84443

== ENCOUNTER 2024-07-29 14:55 | Outpatient (REF) | payer OTHER, SELFPAY ==
--- OUTSIDE RECORDS SUMMARY | 2024-07-29 16:28 | XMS_ITS | Clinical Summary ---
Author Organization [employer] Address [address] [place] [address] 7 [place] [address] Care Team Providers Care Housing Director Name Role Phone Unavailable Primary Care Provider Unavailabl e Allergies No known active allergies Medications No known medications Social History Tobacco Use Types Packs/Day Years Used Date Smoking Tobacco: Never Assessed Comments Unknown Sex and Gender Information Value Date Recorded Sex Assigned at Female 05/03/2022 2:26 PM EST Legal Sex Female 5:36 PM EDT Gender Identity Female 05/03/2022 2:26 PM EST Sexual Orientation Choose not to disclose 2022 2:26 PM EST Plan of Treatment Health Maintenance Due Date Last Done Comments Depression Screening 1990 HIV Screening 1990 SDOH Screening 1992 Alcohol/Substance Use Screening 2004 Tobacco Screening 2004 Family Planning (PISQ) 11/16/2007 Hepatitis C Screening 2010 Pap Smear 2013 Dental Oral Exam 12/04/2017 06/05/2017, , 02/16/2016, Additional history exists Cervical Cancer Screening 2022 HPV/Cotest 2022 Dental Prophylaxis 03/13/2023 09/09/2022, 0 06/05/2017, 08/23/2016, Additional history exists Dental X-Ray: Bitewings 09/11/2023 09/10/19 23, 06/05/2017, 02/16/2016, Additional history exists COVID-19 Vaccine ( season) 2023 03/29/2021, 03/08/2021 Influenza Vaccine (#1) 2023 9, 02/11/2018, 01/26/2018, Additional history exists Dental X-Ray: Full Mouth 09/10/2025 09/09/2022, 06/27 DTaP/Tdap/Td Vaccines (8 - Td or Tdap) 08/16/2030 08/16/2020, 09/15/2009, 07/16/2002, Additional history exists Zoster Vaccines (1 of 2) 2042 RSV Patients and Patients Aged 60 years or older (1 - 1-dose 75+ series) 11/16/2067 HIB Vaccines Completed 02/26/1994, 04/1993, 02/26/1993, Additional history exists Hepatitis B Vaccines Completed 06/26/1996, 1990, 1992 IPV Vaccines Completed 12/03/1996, 04/1994, 02/26/1993, Additional history exists HPV Vaccines Completed 05/12/2007, 12/2006, 12/07/2006 Pneumococcal Vaccine: Pediatrics (0 to 5 Years) and At-Risk Patients (6 to 49) Years) Aged Out 11/17/2014 No longer eligible based on patient's age to complete this topic Hepatitis A Vaccines Aged Out No long er eligible based on patient's age to complete this topic Meningococcal Vaccine Aged Out No neil farzaneh eligible based on patient's age to complete this topic RSV under 20 months Aged Out No longe r eligible based on patient's age to complete this topic Rotavirus Vaccines Aged Out No longer eligible based on patient's age to complete this topic Procedures Procedure Name Priority Date/Time Associated Diagnosis Comments PROPHYLAXIS - CHILD Routine 09/09/2022 3 :00 PM EDT Encounter for dental examination INTRAORAL - COMPLETE SERIES OF RADIOGRAPHIC IMAGES Routine 09/09/2022 3:00 PM EDT Encounter for dental examination PERIODIC ORAL EVALUATION - ESTABLISHED PATIENT Routine 06/05/2017 12:00 AM EST from Last 3 Months or Most Recently Relevant to Health Maintenance Insurance D[place]AL - [place] [facility] * Guarantor: Hawa Reyes Account Type Relation to Patient Date of Phone Billing Address Personal/Family Self [address] [place]
[2024-07-29 18:18] LABS: Thyroid Stimulating Hormone 0.69 uIU/mL (0.32-4.0)
[2024-07-30 07:08] LABS: Follicle Stimulating Hormone 5.6 mIU/mL; Prolactin 10.6 ng/mL
[2024-07-30 22:19] LABS: Rubella IgG Antibody 1.79 Index; Varicella IgG Antibody <1.00 S/CO
[2024-08-01 14:33] LABS: Anti-Mullerian Hormone-Female 7.05 ng/mL (0.36-10.07)
[2024-08-11 02:34] LABS: Estradiol Ultra Sensitive 35 pg/mL
== END 2024-07-29 14:56 | disposition home or self-care (01) ==
LOC: HO.WFDLDS 14:55
PROVIDERS: Visit Provider Obstetrics & Gynecology Gynecology
DX: N91.5 Oligomenorrhea, unspecified (principal); Z30.09 Encounter for other general counseling and advice on contraception
CPT/HCPCS: 36415; 82166; 82670; 83001; 84146; 84443; 86762; 86787

== ENCOUNTER 2024-08-11 08:21 | Outpatient (AMB) | payer OTHER, SELFPAY ==
--- OUTSIDE RECORDS SUMMARY | 2024-08-11 08:30 | XMS_ITS | Clinical Summary ---
Author Organization [employer] Address [address] [place] [address] 7 [place] [address] Care Team Providers Care Sales Floor Team Leader Name Role Phone Unavailable Primary Care Provider [...] Health Maintenance Insurance [facility]AL - [place] [facility] * Guarantor: Hawa Reyes Account Type Relation to Patient Date of Phone Billing Address Personal/Family Self [address] [place]
--- NOTE | 2024-08-11 08:41 | MHC.OFFWIV ---
Intake Vital Signs 08/11/24 08:45 Height 5 ft 3 in BMI Reason not done Patient refused/unable BP 98/67 Blood Pressure Location Lt brachial Position Sitting Respiration 12 Pulse 80 Pulse Source Pulse Oximeter Temp 98.1 F Temp Source Oral Pulse Oximetry (%) 99 Oxygen Delivery Method Simple Mask Intake Visit Reasons: Possible Strep throat Intake Note: Patient c/o sore throat, chills, headache, and fever x 2 days. Patient Tobacco Use Status: Never used Tobacco Engine Maintenance Mechanic Required: No Allergies No Known Allergies [No Known Allergies*] Allergy (Verified 08/11/24 09:05) Medication List - Last Reconciled 08/11/24 by Mimi Troncoso, SKI BINDING FITTER AND REPAIRER- bupropion HCl XL (Wellbutrin XL) 300 mg PO QAM buspirone 30 mg PO BID methylphenidate HCl ER (Concerta) 18 mg PO DAILY pantoprazole 40 mg PO QAM zolpidem 10 mg (2 x 5 mg) PO BEDTIME PRN 7 days Do you need a note to return to daycare/school/sports/work: No HPI HPI Comments History of Present Illness Details 33 y/o F here today w/ c/o sore throat Started 2 days ago Sx: severe sore throat, felt febrile T 99.8, sweating at night, chills during the day, feels tired, mild runny nose exposed to co-worker w strep Denies cough, ear pain Tried Ibu w/ mild relief Exam: Awake alert NAD Sclera and conjunctiva clear bilat Nares patent, turbinates within normal limits, no sinus tenderness with palpation bilat TM intact and clear bilat MMM, pharynx exudative pharyngitis, uvula midline, tonsil grade 2+ on L 1+ on R, tender ac adenopathy bilat worse on R RRR LS CTAB Plan: Rapid strep negative. However 3/3 on McIsaac Calc Tx w/ Augmentin take w/ food to avoid GI upset RTO edu provided Good hand hygiene and respiratory etiquette can reduce the spread of all types of group A strep infection. Hand hygiene is especially important after coughing and sneezing and before preparing foods or eating. Good respiratory etiquette involves covering your cough or sneeze. Do not share food or drinks. Treating an infected person with an antibiotic for 12 hours or longer limits their ability to transmit the bacteria. Thus, people with group A strep pharyngitis should stay home from work, school, or daycare until: They are afebrile AND At least 12?24 hours after starting appropriate antibiotic therapy I also recommend changing toothbrush and washing bed linen in hot water 24 hours after starting antibiotics [facility] Medical History Anxiety Family History Father Pancreatic abnormality Hypertension Mother No problems noted. Social History Alcohol intake: current Patient Tobacco Use Status: Never used Tobacco Physical Exam Vital Signs: Last Vital Signs Temp 98.1 F 08/11/24 08:45 Pulse 80 08/11/24 08:45 Resp 12 08/11/24 08:45 BP 98/67 08/11/24 08:45 Pulse Ox 99 08/11/24 08:45 Oxygen Delivery Method Simple Mask 08/11/24 08:45 Results AMB Rapid Strep AMB Rapid Strep Negative Last Edit by Katheryn Baker MA on 08/11/24 09:05 Assessment & Plan Assessment & Plan (1) Strep pharyngitis: Code(s): J02.0 - Streptococcal pharyngitis Plan . Orders: Orders AMB Rapid Strep Screen Today Z13.9 - Encounter for screening, unspecified Medications: New amoxicillin-pot clavulanate 875-125 mg 1 tab PO BID 7 days 14 tabs 0RF Coding Level of Care Code Est Pt Level 4 (97877) Diagnoses Strep pharyngitis J02.0
[2024-08-11 08:45] VITALS: BP 98/67; PULSE 80; RESP 12; TEMP 36.7; O2SAT 99
== END 2024-08-11 09:10 | disposition home or self-care (01) ==
PROVIDERS: PCP Physician Assistant; Visit Provider Nurse Practitioner Family
DX: J02.0 Streptococcal pharyngitis (principal); Z13.9 Encounter for screening, unspecified

== ENCOUNTER → 2024-08-11 08:21 | Outpatient (BNVA) | payer OTHER, SELFPAY | PROVIDERS: PCP Physician Assistant | DX: J02.0 Streptococcal pharyngitis (principal) | CPT/HCPCS: 87880 ==